=== PATIENT | male | born 1950 | race Caucasian/White ===

== ENCOUNTER → 2021-11-09 | Outpatient (CLI) | payer MEDICARE | LOC: KOH-I 10:00 | DX: R31.9 Hematuria, unspecified (principal); N28.9 Disorder of kidney and ureter, unspecified | CPT/HCPCS: 74176 ==

== ENCOUNTER → 2021-11-17 | Outpatient (CLI) | payer MEDICARE | LOC: CT 07:55 | DX: N28.9 Disorder of kidney and ureter, unspecified (principal); R31.9 Hematuria, unspecified | CPT/HCPCS: Q9967 ==